=== PATIENT | male | born 1965 | race Caucasian/White ===

== ENCOUNTER 2024-02-18 13:12 | Emergency (ER) | payer OTHER ==
[2024-02-18] MEDS ORDERED: Fluorescein Opthalmic Strip ONE (14:00)
[2024-02-18] MEDS ORDERED: Proparacaine 0.5% Opth 15 ML BOT ONE (14:00)
== END 2024-02-18 15:41 | disposition home or self-care (01) ==
LOC: CSHERS 13:12
DX: H57.11 Ocular pain, right eye (principal); I10 Essential (primary) hypertension
CPT/HCPCS: 99283